=== PATIENT | female | born 1990 | race Caucasian/White ===

== ENCOUNTER 2024-12-03 17:27 | Inpatient (IN) | payer BC, SELFPAY ==
[2024-12-03] VITALS (24 sets, daily range): BP systolic 114–212; BP diastolic 67–113; PULSE 63–83; TEMP 36.4; O2SAT 96–100
[2024-12-03 18:12] LABS: Basophils Absolute Auto 0.1 10^3/uL (0.0-0.1); Basophils Percent Auto 0.4 % (0.2-2.0); Eosinophils Percent Auto 0.2 % (0.9-7.0); Hematocrit 43.5 % (36.0-48.0); Hemoglobin 14.7 g/dL (12.0-16.0); Immature Granulocytes Pct Auto 0.6 % (0.0-0.5); Lymphocytes Absolute Auto 1.9 10^3/uL (1.2-3.8); Lymphocytes Percent Auto 11.8 % (20.5-60.0); Mean Corpuscular HGB Conc 33.8 g/dL (29.9-35.2); Mean Corpuscular Hemoglobin 30.2 pg (26.7-34.0); Mean Corpuscular Volume 89.3 fL (81.0-99.0); Mean Platelet Volume 10.6 fL (9.5-13.5); Monocytes Absolute Auto 0.6 10^3/uL (0.3-0.8); Monocytes Percent Auto 4.1 % (1.7-12.0); Neutrophils Percent Auto 82.9 % (43.0-75.0); Platelet Count 287 10^3/uL (150-450); Red Blood Count 4.87 10^6/uL (4.20-5.40); Red Cell Distribution Width 13.8 % (11.0-15.0); White Blood Count 15.7 10^3/uL (4.0-11.0)
--- NOTE | 2024-12-03 18:53 | P.ON_ITS ---
Brief Operative Note Date of procedure: 12/03/24 Pre-op diagnosis general: iup at 38 3/7wks, breech presentation, non reassuring heart tones, Post-op diagnosis: same as pre-op Procedure: NAME OF PROCEDURE: [ section ] PROCEDURE: Patient was taken back to the Operating Room where she was given a spinal anesthesia with Duramorph without difficulty. She was prepped and draped in the normal sterile fashion. A Pfannenstiel skin incision was then made 2 cm above the symphysis pubis and carried down to underlying rectus fascia using a Bovie. The fascia was incised in the midline and extended laterally using Sahu scissors. Two Argenis clamps were placed on the superior aspect of the fascia and dissected off the underlying rectus muscles. The same was performed on the inferior aspect as well. The muscles were then in the midline. Peritoneum was identified and entered bluntly. The peritoneum was then extended superiorly and inferiorly with good visualization of the bladder. The bladder blade was inserted. A low transverse incision was made on the patient's uterus and extended laterally digitally. The infant was then delivered atraumatically after the bladder blade was removed in the breech position. The cord was clamped and cut. Cord blood was obtained. The was handed off to awaiting team. The patient's placenta was spontaneously delivered. The uterus was then exteriorized. The uterus was cleared of all clots and debris. The bladder blade was reinserted. The patient's uterine incision was closed using #0 Vicryl in a running lock fashion. Excellent hemostasis was assured. The uterus was then returned to the patient's abdomen. The patient's abdomen was copiously irrigated using warm saline. Peritoneal gutters were cleared of all clots and debris. Again excellent hemostasis was assured. The patient's peritoneum was closed using 3-0 Vicryl in a running fashion. The patient's fascia was closed using #0 Vicryl in a running fashion. The patient's skin was closed using 4-0 Vicryl subcuticularly. The patient tolerated the procedure well. Sponge, lap, and needle counts were correct x2. The patient was taken to the Recovery Room in stable condition. Anesthesia: spinal Surgeon: Akash Avila Speech And Language Assistant: VALDEZ ALBARADO Estimated blood loss (mL): 575 Pathology: other (placenta) Condition: stable Disposition: PACU Urinary Catheter Management Urinary Catheter Management Urethral: Cath placed during this visit: no
--- NOTE | 2024-12-03 19:04 | PM.OBPRCCS ---
Procedure Pre-op/Post-op diagnoses: Pre-Op/Post-Op Diagnoses Operation Date: 12/03/24 18:30 <No data on this case meets the specified criteria> Procedure: Procedures Operation Date: 12/03/24 18:30 Actual Procedure Side Surgeon p Not Applicable Akash Avila DO Elevator Service Technician: VALDEZ ALBARADO Estimated blood loss (mL): 575 Disposition: PACU Anesthesia type: Spinal
--- NOTE | 2024-12-03 19:33 | PM.OBHP ---
OB - H&P: HPI History of Present Illness Chief complaint: RULE OUT LABOR : 2 Para: 1 Gestational age based on last menstrual period: 38.5 History of Present Dating criteria: LMP confirmed by 1st trimester US care: good care Ultrasounds: normal 1st trimester US and normal mid trimester US Medical complications OB: none Labs Blood type: AB (+) positive Rubella: immune RPR/VDLR: nonreactive GBS status: positive HBsAG: negative Review of Systems ROS Status of ROS: 10 or more systems reviewed and unremarkable except as noted in history and below Exam Constitutional Vital Signs, click to edit/add: Last Vital Signs Pulse 83 12/03/24 18:05 BP 176/98 H 12/03/24 18:05 Documenting provider has reviewed patient's vital signs: yes Common normals: no apparent distress Exam limitations: altered mental status General appearance: cooperative, comfortable, well kempt and well developed Orientation/consciousness: Yes awake, Yes oriented to person, Yes oriented to place and Yes oriented to time HENMT Common normals: normocephalic Head and scalp: normal to inspection Eye Common normals: EOMs intact bilaterally General eye: normal appearance of both eyes Neck & C-Spine Common normals: full ROM General: normal visual inspection Lymph Lymphatic: no lymphadenopathy noted Chest Common normals: inspection of chest normal Respiratory Common normals: normal respiratory effort, no retractions, no use of accessory muscles and clear to auscultation bilaterally Effort & inspection: able to speak in complete sentences Auscultation: clear to auscultation bilaterally Cardio Common normals: regular rate and regular rhythm Rate: regular rate Rhythm: regular rhythm GI Common normals: Normal to inspection, nondistended, normoactive bowel sounds present Inspection: normal to inspection Auscultation: normoactive bowel sounds Palpation: soft Back & Pelvis Common normals: no CVA tenderness Extremity Common normals: normal to inspection, full ROM, normal capillary refill, no joint enlargement, no clubbing, cyanosis or edema, no calf tenderness and no pedal edema Neuro Common normals: oriented x3 Sensorium/orientation: awake, alert, oriented to person, oriented to place, oriented to time and orientation impaired Psych Common normals: mental status grossly normal, thought process normal, cooperative, affect normal, speech normal, activity/motor behavior normal, denies hallucinations, denies homicidal ideation and denies suicidal ideation Appearance: grossly normal Attitude: calm Speech: normal speech Results Labs Labs: Short CBC 12/03/24 Range/Units 17:55 WBC 15.7 H (4.0-11.0) 10^3/uL Hgb 14.7 (12.0-16.0) g/dL Hct 43.5 (36.0-48.0) % Plt Count 287 (150-450) 10^3/uL OB - A/P Assessment and Plan (1) Term : (2) Vaginal delivery: Urinary Catheter Management Urinary Catheter Management Urethral: Cath placed during this visit: no Urethral indwelling: Yes Reason for continuing: prolonged immobilization
--- NOTE | 2024-12-03 19:35 | PC.NURSE ---
1740: Patient arrives via wheelchair with and patient's mother. Cat Pang CNM at bedside. Patient breathing through ctx's. Abdomen palpates moderate strong with ctx. Patient denies localized pain in abdomen. Stands from wheelchair and 2 half-dollar size areas of blood noted on seat of wheelchair. Patient stated bloody show started on way to hospital. Sits on chux in bed and puts on gown-removes pants and lies back, has contraction and states here comes more fluid , CNM and RN visualize plate size area of bright red bleeding on chux and labia.174: Applying US and searching FHR. 174- CNM has US paged overhead. 1746: CN calls Dr Avila and A C/S called. 1748: Code purple paged overhead. IV started in right forearm per investment underwriter- unable to draw labs.1749: CNM applies spo2 monitor. LR hung and infusing wide open per gravity. CNM places 16 swedish young catheter and explains plan of care to patient and family. 1751: Milo Pina RN places 2nd IV site in left hand and labs drawn. 1757:Pharmacy present with preop meds and antibiotic. Dr. Avila at bedside and T's 130's- 175-CNM searching FHT's with US. T's 130's and B c/s called by physician at 1800.. Awaiting CBC results. Pre-op meds given per Milo Pina RN. Oracit given per Mirtha Medel RN po. 1801- Ancef 2 gms IVPB hung per investment underwriter. 1810: To OR per bed per CNM.
--- NOTE | 2024-12-03 19:52 | PM.EN ---
Event Note Event Note: Speech Language Pathologist Travel Note: I first assisted Dr Avila with a primary section for breech presentation and vaginal bleeding. I assisted as directed. I independently closed the Sq layer with 3-0 vicryl without difficulty. I then independently closed the skin incision with 4-0 vicryl without difficulty. Hemostasis noted at completion of closure. Patient tolerated procedure well.
[2024-12-03] MEDS: OXYTOCIN/0.9 % SODIUM CHLORIDE 20 UNITS/1,000 ML PLAST..BAG 125 UNIT IV (19:54)
[2024-12-03] MEDS: ACETAMINOPHEN 500 MG TABLET 1000 MG PO (21:35)
[2024-12-03] MEDS: KETOROLAC TROMETHAMINE 30 MG/ML VIAL IVP (21:35)
[2024-12-04] VITALS (11 sets, daily range): BP systolic 134–167; BP diastolic 74–91; PULSE 57–79; TEMP 36.4–36.9; O2SAT 97
[2024-12-04] MEDS: CEFAZOLIN SODIUM/DEXTROSE,ISO 2 GM/50 ML PIGGYBACK IV (01:38)
[2024-12-04] MEDS: KETOROLAC TROMETHAMINE 30 MG/ML VIAL IVP ×2 (03:24→09:10)
[2024-12-04 06:47] LABS: Basophils Percent Auto 0.2 % (0.2-2.0); Hemoglobin 11.9 g/dL (12.0-16.0); Immature Granulocytes Abs Auto 0.08 10^3/uL (0.00-0.03); Immature Granulocytes Pct Auto 0.5 % (0.0-0.5); Lymphocytes Absolute Auto 1.2 10^3/uL (1.2-3.8); Lymphocytes Percent Auto 7.8 % (20.5-60.0); Mean Corpuscular Hemoglobin 30.2 pg (26.7-34.0); Mean Corpuscular Volume 88.8 fL (81.0-99.0); Mean Platelet Volume 11.1 fL (9.5-13.5); Monocytes Absolute Auto 0.8 10^3/uL (0.3-0.8); Monocytes Percent Auto 5.2 % (1.7-12.0); Neutrophils Absolute Auto 13.2 10^3/uL (1.4-6.5); Neutrophils Percent Auto 86.3 % (43.0-75.0); Platelet Count 243 10^3/uL (150-450); Red Blood Count 3.94 10^6/uL (4.20-5.40); Red Cell Distribution Width 13.6 % (11.0-15.0); White Blood Count 15.3 10^3/uL (4.0-11.0)
[2024-12-04] MEDS: ENOXAPARIN SODIUM 40 MG/0.4 ML SYRINGE SUBQ (07:00)
[2024-12-04] MEDS: ACETAMINOPHEN 500 MG TABLET 1000 MG PO ×3 (07:00→23:55)
[2024-12-04] MEDS: DOCUSATE SODIUM 100 MG CAPSULE PO ×2 (08:37→21:57)
--- NOTE | 2024-12-04 08:51 | P.OBPN_ITS ---
OB - PN: Subj Subjective Patient comments: no complaints [place] status: doing well [place] feeding status: exclusively Exam Constitutional Vital Signs, click to edit/add: Last Vital Signs Temp 97.5 F L 12/03/24 19:18 Pulse 79 12/03/24 20:11 Resp 20 12/04/24 05:30 BP 146/84 H 12/04/24 01:56 Pulse Ox 96 12/03/24 20:07 O2 Del Method Room Air 12/04/24 05:30 Common normals: no apparent distress General appearance: cooperative, comfortable, well kempt and well developed Orientation/consciousness: Yes awake, Yes oriented to person, Yes oriented to place and Yes oriented to time HENMT Common normals: normocephalic Eye Common normals: EOMs intact bilaterally General eye: normal appearance of both eyes Visual acuity: acuity normal Neck & C-Spine Common normals: full ROM Lymph Lymphatic: no lymphadenopathy noted Chest Common normals: inspection of chest normal Respiratory Common normals: normal respiratory effort Effort & inspection: able to speak in complete sentences Auscultation: clear to auscultation bilaterally Cardio Common normals: regular rate and regular rhythm Rate: regular rate Rhythm: regular rhythm GI Common normals: Normal to inspection, nondistended, normoactive bowel sounds present Inspection: normal to inspection Auscultation: normoactive bowel sounds Palpation: soft Percussion: normal to percussion Common normals: no CVA tenderness Back & Pelvis Common normals: no CVA tenderness Extremity Common normals: normal to inspection General: normal exam except as noted Neuro Common normals: oriented x3 Sensorium/orientation: awake, alert, oriented to person, oriented to place and oriented to time Speech: speech normal Gait (neuro): normal gait Psych Psychiatry clinicians, please identify where your Mental Status Exam is documented: Mental Status Exam documented in the separate MSE Common normals: mental status grossly normal, thought process normal, cooperative, affect normal, speech normal, activity/motor behavior normal, denies hallucinations, denies homicidal ideation and denies suicidal ideation Appearance: grossly normal Attitude: calm Speech: normal speech Thought process: normal thought process Thought content: normal thought content Results Labs Labs: Short CBC 12/03/24 12/04/24 Range/Units 17:55 06:21 WBC 15.7 H 15.3 H (4.0-11.0) 10^3/uL Hgb 14.7 11.9 L (12.0-16.0) g/dL Hct 43.5 35.0 L (36.0-48.0) % Plt Count 287 243 (150-450) 10^3/uL Urinary Catheter Management Urinary Catheter Management Urethral: Cath placed during this visit: no Urethral indwelling: Yes Reason for continuing: prolonged immobilization OB - PN: A/P Assessment and Plan (1) Term : (2) Vaginal delivery: Plan - day: 1 Plan: routine postop care Time Spent with Patient Time: Total time spent is greater than 50% in coordination of care (as documented) at patient's floor/unit and/or counseling patient: Total time spent with greater than 50% in coordination of care (as documented) at patient's floor/unit and/or counseling patient: less than 15 minutes
[2024-12-04 13:59] LABS: Basophils Percent Auto 0.2 % (0.2-2.0); Eosinophils Percent Auto 0.1 % (0.9-7.0); Hematocrit 35.3 % (36.0-48.0); Hemoglobin 12.2 g/dL (12.0-16.0); Immature Granulocytes Abs Auto 0.06 10^3/uL (0.00-0.03); Immature Granulocytes Pct Auto 0.4 % (0.0-0.5); Lymphocytes Absolute Auto 2.4 10^3/uL (1.2-3.8); Lymphocytes Percent Auto 14.4 % (20.5-60.0); Mean Corpuscular HGB Conc 34.6 g/dL (29.9-35.2); Mean Corpuscular Volume 89.6 fL (81.0-99.0); Mean Platelet Volume 10.9 fL (9.5-13.5); Monocytes Absolute Auto 1.5 10^3/uL (0.3-0.8); Monocytes Percent Auto 8.9 % (1.7-12.0); Neutrophils Absolute Auto 12.6 10^3/uL (1.4-6.5); Platelet Count 264 10^3/uL (150-450); Red Blood Count 3.94 10^6/uL (4.20-5.40); White Blood Count 16.5 10^3/uL (4.0-11.0)
[2024-12-04 14:17] LABS: Alanine Aminotransferase 22 U/L (14-59); Albumin Globulin Ratio 0.6; Albumin Level 2.4 g/dL (3.4-5.0); Alkaline Phosphatase 88 U/L (46-116); Aspartate Amino Transferase 19 U/L (15-37); BUN Creatinine Ratio 23.3; Bilirubin Total 0.3 mg/dL (0.2-1.0); Calcium 9.4 mg/dL (8.5-10.1); Carbon Dioxide 24.2 mmol/L (21.0-32.0); Chloride 105 mmol/L (98-107); Estimated GFR (African America >60 (>=60 mL/min/1.73m^2); Estimated GFR (Non-African Ame >60 (>=60 mL/min/1.73m^2); Globulin 3.8 g/dL; Glucose 84 mg/dL (74-106); Lactate Dehydrogenase 258 U/L (81-234); Potassium 4.2 mmol/L (3.5-5.1); Sodium 140 mmol/L (136-145); Total Protein 6.2 g/dL (6.4-8.2)
[2024-12-04 14:20] LABS: Prothrombin Time 9.7 sec (9.0-11.6)
[2024-12-04 14:22] LABS: INR <0.93
[2024-12-04 14:23] LABS: Fibrinogen 432 mg/dL (200-400)
[2024-12-04 14:36] LABS: Creatinine Urine Random 17.81 mg/dL (20.00-300.00); Protein Creatinine Ratio Urine 0.34; Total Protein Urine Random <6.0 mg/dL (<=11.9)
[2024-12-04] MEDS: IBUPROFEN 400 MG TABLET 800 MG PO ×2 (15:52→21:57)
[2024-12-05] VITALS: BP 134/74; TEMP 36.4
[2024-12-05] MEDS: IBUPROFEN 400 MG TABLET 800 MG PO ×3 (04:16→17:22)
[2024-12-05 04:20] VITALS: BP 155/84; PULSE 58
[2024-12-05 08:09] VITALS: BP 143/82; PULSE 68
[2024-12-05] MEDS: ENOXAPARIN SODIUM 40 MG/0.4 ML SYRINGE SUBQ (08:13)
[2024-12-05] MEDS: ACETAMINOPHEN 500 MG TABLET 1000 MG PO ×2 (08:14→17:23)
[2024-12-05] MEDS: DOCUSATE SODIUM 100 MG CAPSULE PO (08:14)
[2024-12-05 08:20] VITALS: BP 143/82; PULSE 68; TEMP 36.9
--- NOTE | 2024-12-05 10:28 | PM.OBDS ---
DS: Providers Provider Date of admission: 12/03/24 17:27 Primary care physician: Non-Staff Physician, Admitting clinician: VALDEZ ALBARADO Attending physician on discharge: Lala Medellin Anticipated date of discharge: 12/05/24 DS: Diagnosis Discharge Diagnosis (1) delivery indicated due to breech presentation: Assessment and plan: S/P URGENT CS FOR NONREASSURING HEART TRACING, VAGINAL BLEEDING AND BREECH PRESENTATION PRIOR TO 39 WEEKS. UNCOMPLICATED POST OP COURSE. INCISION CARE INSTRUCTIONS GIVEN WITH STATED UNDERSTANDING. (2) Hypertension: Assessment and plan: THIS PATIENT HAS A NORMAL BMI. SHE DOES NOT SMOKE. SHE HAS NO MEDICAL HISTORY. THAT SAID, POST SHE DID HAVE ELEVATED BLOOD PRESSURES. HER WORK UP FOR PREECLCAMPSIA WAS NEGATIVE. THE BLOOD PRESSURES WERE NOT IN THE SEVERE RANGE. SHE IS WHOLISTIC WITH RESPECT TO HER LIFESTYLE AND STRONGLY RESISTED ANY MEDICATIONS AFTER URGENT SECTION. SHE DEMONSTRATED NO SYMPTOMS WITH ELEVATED BLOOD PRESSURES. I BELIEVE THIS PATIENT WILL RESOLVE HER HYPERTENSION ON HER OWN AND WILL NOT PRESCRIBE ANTIHYPERTENSIVES WHICH IS HER EXPRESSED WISH. THAT SAID, SHE WILL BE CLOSELY MONITORED POST AND IF THERE IS NOT COMPLETE RESOLUTION AND OR PRESENCE OF SYMPTOMS FOR ELEVATED BLOOD PRESSURE SHE WILL BE STARTED ON AN ANTIHYPERTENSIVE. SHE LIVES IN [facility] [place] C[place]SE TO HER MIDWIVES OFFICE AND WILL FOLLOW UP SUNDAY FOR INCISION CHECK AND BLOOD PRESSURE CHECK Qualifiers: Hypertension type: unspecified Qualified Code(s): I10 - Essential (primary) hypertension Plan SEE ABOVE OB - DS: Summary Hospital Course Hospital Course: UNCOMPLICATED Time spent discussing smoking cessation with patient: more than 10 minutes Peripartum Data - Procedures: Procedures Operation Date: 12/03/24 18:30 Actual Procedure Side Surgeon p Not Applicable Akash Avila DO Peripartum Data - Vaginal Delivery Procedures: Procedures Operation Date: 12/03/24 18:30 Actual Procedure Side Surgeon p Not Applicable Akash Avila DO Complications complications: none Infant Delivery method: emergency section Gender: male Discharge plan: home Status at Discharge Cognitive/behavioral status at discharge: WNL Functional status at discharge: independent ambulation Overall status at discharge: patient is progressing back to baseline Time Spent with Patient Time attestation: Total time spent providing and/or coordinating discharge services: Time spent: less than 30 minutes Exam Narrative Exam Narrative: ASKING TO BE DISCHARGED, VOICING NO COMPLAINTS Constitutional Vital Signs, click to edit/add: Last Vital Signs Temp 98.5 F 12/05/24 08:20 Pulse 68 12/05/24 08:20 Resp 18 12/05/24 00:00 BP 143/82 H 12/05/24 08:20 Pulse Ox 97 12/04/24 12:15 O2 Del Method Room Air 12/05/24 00:00 Documenting provider has reviewed patient's vital signs: yes Common normals: no apparent distress, average body habitus, oriented x3, no limitations, healthy appearing, alert and well nourished General appearance: cooperative, comfortable, well kempt and well developed HENMT Common normals: normocephalic and head/scalp atraumatic Eye Common normals: PERRL Pupil: accommodation reflex normal Neck & C-Spine Common normals: full ROM and supple Chest Common normals: inspection of chest normal Respiratory Common normals: normal respiratory effort Auscultation: clear to auscultation bilaterally Cardio Common normals: regular rate and regular rhythm GI Common normals: Normal to inspection, nondistended, normoactive bowel sounds present, soft to palpation and non-tender Common normals: no CVA tenderness Back & Pelvis Common normals: no thoracic nor lumbar tenderness Extremity Common normals: normal to inspection, full ROM and no calf tenderness Neuro Common normals: CN's II-XII intact bilaterally, moves all extremities, no focal motor deficits and no sensory deficits noted Motor exam: strength 5/5 throughout Psych Common normals: mental status grossly normal, thought process normal, cooperative, affect normal, speech normal and activity/motor behavior normal DS: Data Data Completed and Pending Labs on day of discharge: Labs from last 24 hours 12/04/24 12/04/24 14:20 13:51 WBC 16.5 H RBC 3.94 L Hgb 12.2 Hct 35.3 L MCV 89.6 MCH 31.0 MCHC 34.6 RDW 14.0 Plt Count 264 MPV 10.9 Neut % (Auto) 76.0 H Lymph % (Auto) 14.4 L Gilliam % (Auto) 8.9 Eos % (Auto) 0.1 L Baso % (Auto) 0.2 Neut # (Auto) 12.6 H Lymph # (Auto) 2.4 Gilliam # (Auto) 1.5 H Eos # (Auto) 0.0 Baso # (Auto) 0.0 Abs Immat Gran (auto) 0.06 H Imm/Tot Granulo (auto) 0.4 PT 9.7 INR <0.93 APTT 24.0 Fibrinogen 432 H Sodium 140 Potassium 4.2 Chloride 105 Carbon Dioxide 24.2 Anion Gap 15.0 BUN 17.0 Creatinine 0.73 Est GFR ( Amer) >60 Est GFR (Non-Af Amer) >60 BUN/Creatinine Ratio 23.3 Glucose 84 Calcium 9.4 Total Bilirubin 0.3 AST 19 ALT 22 Alkaline Phosphatase 88 Lactate Dehydrogenase 258 H Total Protein 6.2 L Albumin 2.4 L Globulin 3.8 Albumin/Globulin Ratio 0.6 Ur Random Creatinine 17.81 L U Random Total Protein <6.0 Protein/Creatinin Ratio 0.34 Discharge Plan Discharge Disposition: Home, Self-Care Condition: Good Assessment: BLOOD PRESSURE TRENDING BACK TO NORMAL RANGE. NO SYMPTOMS OF HEADACHE OF VISUAL CHANGES OR BLURRING VISION. CLINICAL EXAM NORMAL. BREAST FEEDING GOING WELL. Plan of Treatment: DISCHARGE HOME, CLOSE MONITORING OF BLOOD PRESSURE TO ENSURE RETURNS TO NORMAL. INSTRUCTIONS GIVEN WITH STATED UNDERSTANDING. GENERAL RSV, COVID AND PNEUMONIA PRECAUTIONS Activity: increase activity as tolerated Activity Detail: NO SEX SIX WEEKS, WALKING ONLY EXERCISE SIX WEEKS, NO BATHTUB SIX WEEKS, MAY SHOWER, NO DRIVING 4 WEEKS, MAY CLIMB STAIRS Diet: regular diet Print Language: Malaysian Patient Instructions: Hypertension (DC), (DC) Activity Restrictions/Additional Instructions: STATED ABOVE Forms: Portal Instructions Follow Up Appointments: FOLLOW UP SUNDAY WITH FRANCOISE ALBARADO FOR INCISION CHECK AND BLOOD PRESSURE CHECK Discharge location: HOME
[2024-12-05 17:01] VITALS: BP 152/78; PULSE 78
[2024-12-05 17:05] VITALS: BP 152/78; PULSE 78; TEMP 37.3
== END 2024-12-05 20:25 | disposition home or self-care (01) | DRG 788 ==
PROVIDERS: Obstetrics & Gynecology; Admitting Provider Midwife; Visit Provider Midwife
PROC: 10D00Z1 Extraction of Products of Conception, Low, Open Approach (ICD-10-PCS; CPT 59514; principal; 2024-12-03 18:30)
DX: O32.1XX0 Maternal care for breech presentation, not applicable or unspecified (principal); O99.824 Streptococcus B carrier state complicating childbirth; O67.8 Other intrapartum hemorrhage; O76 Abnormality in fetal heart rate and rhythm complicating labor and delivery; O16.5 Unspecified maternal hypertension, complicating the puerperium; Z3A.38 38 weeks gestation of pregnancy; Z37.0 Single live birth
CPT/HCPCS: 36415; 64488; 80053; 80307; 82570; 83615; 84156; 85025; 85384; 85610; 85730; 86850; 86900; 86901; 88307; 94667; 94668; J0665; J0690; J1100; J1650; J1885; J2250; J2274; J2371; J2405; J2590; J3010

== ENCOUNTER 2024-12-10 14:45 | Observation (INO) | payer BC, SELFPAY ==
[2024-12-10] VITALS (29 sets, daily range): BP systolic 92–190; BP diastolic 56–121
[2024-12-10] MEDS: LABETALOL HCL 20 MG/4 ML SYRINGE IVP (15:31)
[2024-12-10] MEDS: MAGNESIUM SULFATE IN WATER 40 GM/1,000 ML IV.SOLN IV ×2 (15:38→16:07)
[2024-12-10] MEDS: MAGNESIUM-BOLUS FROM THE BAG- 40 GM/1,000 ML IV.SOLN IV (15:39)
[2024-12-10 16:24] LABS: Basophils Absolute Auto 0.1 10^3/uL (0.0-0.1); Basophils Percent Auto 0.6 % (0.2-2.0); Eosinophils Absolute Auto 0.3 10^3/uL (0.0-0.7); Eosinophils Percent Auto 2.2 % (0.9-7.0); Hematocrit 37.7 % (36.0-48.0); Hemoglobin 12.7 g/dL (12.0-16.0); Immature Granulocytes Abs Auto 0.08 10^3/uL (0.00-0.03); Immature Granulocytes Pct Auto 0.7 % (0.0-0.5); Lymphocytes Absolute Auto 2.7 10^3/uL (1.2-3.8); Lymphocytes Percent Auto 23.6 % (20.5-60.0); Mean Corpuscular HGB Conc 33.7 g/dL (29.9-35.2); Mean Corpuscular Hemoglobin 30.3 pg (26.7-34.0); Mean Platelet Volume 10.5 fL (9.5-13.5); Monocytes Absolute Auto 0.8 10^3/uL (0.3-0.8); Monocytes Percent Auto 6.9 % (1.7-12.0); Neutrophils Absolute Auto 7.4 10^3/uL (1.4-6.5); Platelet Count 333 10^3/uL (150-450); Red Blood Count 4.19 10^6/uL (4.20-5.40); Red Cell Distribution Width 13.8 % (11.0-15.0); White Blood Count 11.3 10^3/uL (4.0-11.0)
[2024-12-10] MEDS: LABETALOL HCL 20 MG/4 ML SYRINGE 40 MG IVP (16:39)
[2024-12-10 16:43] LABS: Alanine Aminotransferase 81 U/L (14-59); Albumin Globulin Ratio 0.7; Albumin Level 2.9 g/dL (3.4-5.0); Alkaline Phosphatase 101 U/L (46-116); Anion Gap 16.5; Aspartate Amino Transferase 51 U/L (15-37); BUN Creatinine Ratio 33.3; Bilirubin Total 0.4 mg/dL (0.2-1.0); Calcium 9.4 mg/dL (8.5-10.1); Carbon Dioxide 22.6 mmol/L (21.0-32.0); Chloride 104 mmol/L (98-107); Estimated GFR (African America >60 (>=60 mL/min/1.73m^2); Estimated GFR (Non-African Ame >60 (>=60 mL/min/1.73m^2); Globulin 3.9 g/dL; Glucose 79 mg/dL (74-106); Potassium 4.1 mmol/L (3.5-5.1); Sodium 139 mmol/L (136-145); Total Protein 6.8 g/dL (6.4-8.2)
[2024-12-10 17:05] LABS: Fibrinogen 360 mg/dL (200-400)
[2024-12-10] MEDS: LABETALOL HCL 100 MG TABLET 300 MG PO (18:02)
--- NOTE | 2024-12-10 20:09 | PC.NURSE ---
Magnesium sulfate 2 gms/hr per IV infusion. NS infusing as mainline at 50ml/hr per pump. Verified with Jc Hawthorne RN
[2024-12-11] VITALS (16 sets, daily range): BP systolic 97–116; BP diastolic 59–76; PULSE 62–65; TEMP 36.4–37.1; O2SAT 96
[2024-12-11] MEDS: LABETALOL HCL 100 MG TABLET 200 MG PO ×3 (02:22→17:40)
--- NOTE | 2024-12-11 09:09 | PM.OBPN ---
OB - PN: Subj Subjective Patient comments: no complaints [place] status: doing well [place] feeding status: exclusively Exam Constitutional Vital Signs, click to edit/add: Last Vital Signs Temp 97.6 F 12/11/24 05:39 Pulse 65 12/11/24 05:39 Resp 16 12/11/24 05:39 BP 113/74 12/11/24 08:00 Pulse Ox 96 12/11/24 05:39 O2 Del Method Room Air 12/11/24 05:39 Documenting provider has reviewed patient's vital signs: yes Common normals: no apparent distress General appearance: cooperative, comfortable, well kempt and well developed Orientation/consciousness: Yes awake, Yes oriented to person, Yes oriented to place and Yes oriented to time HENMT Common normals: normocephalic Eye Common normals: EOMs intact bilaterally General eye: normal appearance of both eyes Neck & C-Spine Common normals: no lymphadenopathy General: normal visual inspection Lymph Lymphatic: no lymphadenopathy noted Respiratory Common normals: normal respiratory effort, no retractions, no use of accessory muscles and clear to auscultation bilaterally Effort & inspection: able to speak in complete sentences Cardio Common normals: regular rate and regular rhythm Rate: regular rate Rhythm: regular rhythm GI Common normals: Normal to inspection, nondistended, normoactive bowel sounds present Inspection: normal to inspection Back & Pelvis Common normals: no CVA tenderness Extremity Common normals: normal to inspection Neuro Common normals: oriented x3 Sensorium/orientation: awake, alert, oriented to person, oriented to place and oriented to time Psych Common normals: mental status grossly normal, thought process normal, cooperative, affect normal, speech normal, activity/motor behavior normal, denies hallucinations, denies homicidal ideation and denies suicidal ideation Attitude: calm Thought process: normal thought process Results Labs Labs: Short CBC 12/10/24 Range/Units 15:50 WBC 11.3 H (4.0-11.0) 10^3/uL Hgb 12.7 (12.0-16.0) g/dL Hct 37.7 (36.0-48.0) % Plt Count 333 (150-450) 10^3/uL BMP 12/10/24 15:50 Sodium 139 Potassium 4.1 Chloride 104 Carbon Dioxide 22.6 BUN 19.0 H Creatinine 0.57 Glucose 79 Calcium 9.4 Liver Function 12/10/24 Range/Units 15:50 Total Bilirubin 0.4 (0.2-1.0) mg/dL AST 51 H (15-37) U/L ALT 81 H (14-59) U/L Alkaline Phosphatase 101 (46-116) U/L Albumin 2.9 L (3.4-5.0) g/dL Urinary Catheter Management Urinary Catheter Management Urethral: Cath placed during this visit: no Urethral indwelling: Yes Reason for continuing: prolonged immobilization OB - PN: A/P Plan - Comment: readmit for post preeclampsia. elevated blood pressure in my office. readmit for 24 OBS and magnesium sulfate IV and labetalol administration. Time Spent with Patient Time: Total time spent is greater than 50% in coordination of care (as documented) at patient's floor/unit and/or counseling patient: Total time spent with greater than 50% in coordination of care (as documented) at patient's floor/unit and/or counseling patient: less than 15 minutes
[2024-12-11] MEDS: MAGNESIUM SULFATE IN WATER 40 GM/1,000 ML IV.SOLN IV (09:43)
[2024-12-11] MEDS: 0.9 % SODIUM CHLORIDE 1,000 ML 50 ML IV (10:00)
[2024-12-12 01:44] VITALS: BP 136/62; PULSE 60; TEMP 36.7
[2024-12-12] MEDS: LABETALOL HCL 100 MG TABLET 200 MG PO ×2 (01:47→09:21)
--- NOTE | 2024-12-12 08:03 | P.OBPN_ITS ---
OB - PN: Subj Subjective Patient comments: no complaints [place] status: doing well Exam Constitutional Vital Signs, click to edit/add: Last Vital Signs Temp 98.0 F 12/12/24 01:44 Pulse 60 12/12/24 01:44 Resp 16 12/12/24 01:44 BP 136/62 12/12/24 01:44 Pulse Ox 96 12/11/24 12:15 O2 Del Method Room Air 12/12/24 01:45 Documenting provider has reviewed patient's vital signs: yes Common normals: no apparent distress Respiratory Common normals: normal respiratory effort and clear to auscultation bilaterally Cardio Common normals: regular rate and regular rhythm GI Common normals: Normal to inspection, nondistended, normoactive bowel sounds present Extremity Common normals: no clubbing, cyanosis or edema Urinary Catheter Management Urinary Catheter Management Urethral: Cath placed during this visit: no Urethral indwelling: Yes OB - PN: A/P Assessment and Plan (1) Severe pre-eclampsia, : Assessment and Plan: cont labetalol, fu 1wk for bp check, labs reviewed, dc home, precautions given Plan - Vaginal Delivery day: 9 Plan: discharge home and other (fu 1wk) Time Spent with Patient Time: Total time spent is greater than 50% in coordination of care (as documented) at patient's floor/unit and/or counseling patient: Total time spent with greater than 50% in coordination of care (as documented) at patient's floor/unit and/or counseling patient: less than 15 minutes
[2024-12-12 09:00] VITALS: BP 150/82; PULSE 60; TEMP 36.6
== END 2024-12-12 10:15 | disposition home or self-care (01) ==
PROVIDERS: Admitting Provider Midwife; Visit Provider Midwife
DX: O14.15 Severe pre-eclampsia, complicating the puerperium (principal)
CPT/HCPCS: 36415; 80053; 84560; 85025; 85384; 96365; 96366; 96375; 96376; G0378; G0379; J1920; J3475

== ENCOUNTER 2024-12-15 08:19 | Outpatient (OUT) | payer BC, SELFPAY ==
--- OUTSIDE RECORDS SUMMARY | 2024-12-15 08:37 | XMS_ITS | CCD ---
Author Organization [facility] Care Team Providers Care Drafter (Cad) Electronic Name Role Phone Connie Hernandez MD Primary Care Provider FLORO, KELLY L Attending Unavailable FLORO, KELLY L Attending Unavailable FLORO, KELLY L Attending Unavailable FLORO, KELLY L Referring Unavailable FLORO, KELLY L Attending Unavailable FLORO, KELLY L Attending Unavailable FLORO, KELLY L Referring Unavailable FLORO, KELLY L Attending Unavailable FLORO, KELLY L Attending Unavailable FLORO, KELLY L Referring Unavailable FLORO, KELLY L Attending Unavailable FLORO, KELLY L Attending Unavailable FLORO, KELLY L Attending Unavailable FLORO, KELLY L Attending Unavailable FLORO, KELLY L Attending Unavailable FLORO, KELLY L Attending Unavailable NIKA AVILA Attending Unavailable Medications Current Medications Medication Drug Class(es) Dates Sig (Normalized) Sig (Original) acetaminophen 500 mg oral tablet (3 sources) take 1 tablet by mouth every eight hours as needed for pain acetaminophen (Tylenol) 500 MG tablet Take 500 mg by mouth every 8 (eight) hours if needed for mild pain Active ibuprofen 600 mg oral tablet (3 sources) Nonsteroidal Anti-inflammatory Drug take 1 tablet by mouth every six hours as needed for pain ibuprofen 600 MG tablet 600 mg every 6 (six) hours if needed for mild pain Active Problems Problem Classification Problem Date Documented Da te Episodic/Chronic Female infertility (4 sources) Anovulation; Translations: [Female infertility associated with anovulation] 01-01-2024 Chronic Malposition; malpresentation (12 sources) Breech presentation; Translations: [Maternal care for breech presentation, not applicable or unspecified] 10-08-2024 Episodic Other circulatory disease (2 sources) Elevated blood pressure; Translations: [Elevated blood-pressure reading, without diagnosis of hypertension] 12-10-2024 Episodic Other complications of (4 sources) Finding related to ; Translations: [ related conditions, unspecified, third trimester] 09-10-2024 Episodic Other nervous system disorders (2 sources) Hyperreflexia; Translations: [Abnormal reflex] 12-10-2024 Episodic Other and delivery including normal (20 sources) Normal ; Translations: [Encounter for supervision of other normal , second trimester] 09-10-2024 Episodic Other screening for suspected conditions (not mental disorders or infectious disease) (6 sources) Cancer cervix screening status; Translations: [Encounter for screening for malignant neoplasm of cervix] 01-01-2024 Episodic Residual codes; unclassified (2 sources) Gestation period, 38 weeks; Translations: [38 weeks gestation of ] 12-03-2024 Episodic Results Test Name Value Interpretation Reference Range Facil ity ALL CBC WITH AUTO DIFFon BASOPHILS ABSOLUTE AUTO 0.1 [facility] Basophils/100 WBC (Bld) 0.6 % 0.2 - 2.0 % [facility] Eosinophils/100 WBC (Bld) 2.2 % 0.9 - 7.0 % [facility] Erythrocyte distribution width (RBC) [Ratio] 13.8 % 11.0 - 15.0 % [facility] Hematocrit (Bld) [Volume fraction] 37.7 % 36.0 - 48.0 % [facility] [Mass/Vol] 12.7 g/dL 12.0 - 16.0 g/dL [facility] IMMATURE GRANULOCYTES ABS AUTO 0.08 High [facility] Immature granulocytes/100 WBC (Bld) 0.7 % High 0.0 - 0.5 % [facility] Interpretation and review of laboratory results Abnormal [facility] LYMPHOCYTES ABSOLUTE AUTO 2.7 [facility] Lymphocytes/100 WBC (Bld) 23.6 % 20.5 - 60.0 % [facility] MCH (RBC) [Entitic mass] 30.3 pg 26.7 - 34.0 pg [facility] MCHC (RBC) [Mass/Vol] 33.7 g/dL 29.9 - 35.2 g/dL [facility] MCV (RBC) [Entitic vol] 90 fL 81.0 - 99.0 fL [facility] MONOCYTES ABSOLUTE AUTO 0.8 [facility] Monocytes/100 WBC (Bld) 6.9 % 1.7 - 12.0 % [facility] NEUTROPHILS ABSOLUTE AUTO 7.4 High [facility] Neutrophils/100 WBC (Bld) 66 % 43.0 - 75.0 % [facility] Platelet mean volume (Bld) [Entitic vol] 10.5 fL 9.5 - 13.[address] [facility] EO # 0.3 [facility] PLT 333 [facility] RBC 4.19 Low [facility] WBC 11.3 High [facility] ALL CBC WITH AUTO DIFFon BASOPHILS ABSOLUTE AUTO 0 [facility] Basophils/100 WBC (Bld) 0.2 % 0.2 - 2.0 % [facility] Eosinophils/100 WBC (Bld) 0 % Low 0.9 - 7.0 % [facility] Erythrocyte distribution width (RBC) [Ratio] 13.6 % 11.0 - 15.0 % [facility] Hematocrit (Bld) [Volume fraction] 35 % Low 36.0 - 48.0 % [facility] Hemoglobin (Bld) [Mass/Vol] 11.9 g/dL Low 12.0 - 16.0 g/dL [facility] IMMATURE GRANULOCYTES ABS AUTO 0.08 High [facility] Immature granulocytes/100 WBC (Bld) 0.5 % 0.0 - 0.5 % [facility] Interpretation and review of laboratory results Abnormal [facility] LYMPHOCYTES ABSOLUTE AUTO 1.2 [facility] Lymphocytes/100 WBC (Bld) 7.8 % Low 20.5 - 60.0 % [facility] MCH (RBC) [Entitic mass] 30.2 pg 26.7 - 34.0 pg [facility] MCHC (RBC) [Mass/Vol] 34 g/dL 29.9 - 35.2 g/dL [facility] MCV (RBC) [Entitic vol] 88.8 fL 81.0 - 99.0 fL [facility] MONOCYTES ABSOLUTE AUTO 0.8 [facility] Monocytes/100 WBC (Bld) 5.2 % 1.7 - 12.0 % [facility] NEUTROPHILS ABSOLUTE AUTO 13.2 High [facility] Neutrophils/100 WBC (Bld) 86.3 % High 43.0 - 75.0 % [facility] Platelet mean volume (Bld) [Entitic vol] 11.1 fL 9.5 - 13.5 fL [facility] EO # 0 [facility] PLT 243 [facility] RBC 3.94 Low [facility] WBC 15.3 High [facility] ALL CBC WITH AUTO DIFFon BASOPHILS ABSOLUTE AUTO 0.1 [facility] Basophils/100 WBC (Bld) 0.4 % 0.2 - 2.0 % [facility] Eosinophils/100 WBC (Bld) 0.2 % Low 0.9 - 7.0 % [facility] Erythrocyte distribution width (RBC) [Ratio] 13.8 % 11.0 - 15.0 % [facility] Hematocrit (Bld) [Volume fraction] 43.5 % 36.0 - 48.0 % [facility] Hemoglobin (Bld) [Mass/Vol] 14.7 g/dL 12.0 - 16.0 g/dL [facility] IMMATURE GRANULOCYTES ABS AUTO 0.1 High [facility] Immature granulocytes/100 WBC (Bld) 0.6 % High 0.0 - 0.5 % [facility] Interpretation and review of laboratory results Abnormal [facility] LYMPHOCYTES ABSOLUTE AUTO 1.9 [facility] Lymphocytes/100 WBC (Bld) 11.8 % Low 20.5 - 60.0 % [facility] MCH (RBC) [Entitic mass] 30.2 pg 26.7 - 34.0 pg [facility] MCHC (RBC) [Mass/Vol] 33.8 g/dL 29.9 - 35.2 g/dL [facility] MCV (RBC) [Entitic vol] 89.3 fL 81.0 - 99.0 fL [facility] MONOCYTES ABSOLUTE AUTO 0.6 [facility] Monocytes/100 WBC (Bld) 4.1 % 1.7 - 12.0 % [facility] NEUTROPHILS ABSOLUTE AUTO 13 High [facility] Neutrophils/100 WBC (Bld) 82.9 % High 43.0 - 75.0 % [facility] Platelet mean volume (Bld) [Entitic vol] 10.6 fL 9.5 - 13.5 fL [facility] EO # 0 [facility] PLT 287 [facility] RBC 4.87 [facility] WBC 15.7 High [facility] Urinalysis macro (dipstick) panel (U)on 12-03-2024 Bilirubin, UA Negative Negative - 4(70) +++ mg/dL [facility] Blood, UA Negative Negative - 50 Mendez/mcL [facility] Clarity, UA Clear [facility] re Color, UA Yellow [facility] Glucose, UA Negative Negative - 1999(110) ++++ mg/dL [facility] Interpretation and review of laboratory results Abnormal [facility] Ketones, UA Negative Negative - 160(16) ++++ mg/dL [facility] Leukocytes, UA Trace Negative - 500+++ Josselin/mcL [facility] Nitrite, UA Negative Negative - Positive [facility] pH, UA 7 5 - 9 [facility] e Protein, UA Negative Negative - 1999(20) ++++ mg/dL [facility] Spec Grav, UA 1.015 1 - 1.03 [facility] Urobilinogen, UA 0.2 0.2 - 12 mg/dL [facility] US OB FOLLOW UP TRANSABDOMIN AL APPROACHon 10-08-2024 US OB FOLLOW UP TRANSABDOMINAL APPROACH EXAM: OB Ultrasound: REASON FOR EXAM: Follow up growth. TECHNIQUE: Grayscale and color Doppler imaging is performed. Measurements: heart rate: 141 bpm DAVID: 15.8 cm (8.9 - 23.6) BPD: 7.6 cm HC: 27.8 cm AC: 25.9 cm FL: 5.9 cm GA for sonogram: 30.1 wk (27.7 - 32.6) Cervix length: 3.7 cm RENA: 12/13/2024 Weight Estimate: Weight: 1558 gm / 3 lbs, 6 oz (1330 - 1785 gm) Hadlock Normal: 1666 gm (1383 - 1949 gm) Hadlock Wt%: 31% for 30.6 wks Clinical Summary: A single intrauterine is noted in breech presentation. heart is observed with a heart rate of 141 bpm. size is normal. body and limb movements are observed. Placenta is located fundally. Placenta is Grade I/III Amniotic fluid volume is normal. Limites study. Full anatomical survey not performed. Dictated and transcribed 10/08/2024/tm This report has been electronically signed and approved by the interpreting radiologist. Normal Not Available US OB 14+ WEEKS ANATOMY SCAN on 07-24-2024 US OB 14+ WEEKS ANATOMY SCAN EXAM: OB Ultrasound: REASON FOR EXAM: Anatomy scan. TECHNIQUE: Grayscale imaging with color-flow Doppler and spectral analysis performed. Measurements: heart rate: 147 bpm DAVID: 12.0 cm (9.2 - 21.1) BPD: 4.8 cm HC: 16.8 cm AC: 14.2 cm FL: 3.1 cm GA for sonogram: 19.6 weeks (18.2 - 21.0) RENA: 12/13/2024 Cervix length: 4.4 cm Weight Estimate: Weight: 302 gm/0 lbs, 10 oz (258 - 346 gm) Hadlock Normal: 314 gm (261 - 367 gm) Hadlock Wt%: 40% for 19.7 wks Clinical Summary: A single intrauterine is noted in cephalic presentation. Four-chamber heart is observed with a heart rate of 147 BPM. size is normal. growth: Consistent with normal growth. motion and organs seen: Normal intracranial anatomy is seen. body and limb movements are observed. spine, limbs, bladder, kidneys and stomach are observed and within normal limits. Umbilical cord insertion and three-vessel cord are identified and within normal limits. diaphragm, genitalia, four limbs are visualized and normal in appearance. Placenta is located anterior, fundal/right. Placenta is grade 0/III. There is no evidence of placenta previa. Amniotic fluid volume is normal. IMPRESSION: LMP is accurate. Normal study. Dictated and transcribed 07/25/2024/ This report has been electronically signed and approved by the interpreting radiologist. Electronically Signed John Burks M.D. 2024-07-25 18:58:19 Normal Not Available US OB < 14 WEEKS EARLYon US OB < 14 WEEKS EARLY FINDINGS: A single intrauterine gestational sac is present. No subchorionic hemorrhage. A single pole is present. Normal heart rate at 168 beats per minute. Yolk sac also is seen. Current sonographic age is 8 weeks and 5 days based on the crown-rump length measurement of 2.1cm. Based on this age, current estimated date of delivery is December 12, 2024. No pelvic fluid or adnexal mass present. Cervical 4.8 cm closed. Right ovarian 1.6 x 2.0 cm corpus luteum cyst. IMPRESSION: Findings consistent with a live intrauterine gestation, current sonographic age of 8 weeks and4 days resulting in an estimated date of delivery of December 12, 2024. TRANSCRIBED BY: ELECTRONICALLY SIGNED BY: Garfield Swartz MD Normal Not Available Vital Signs Date Time Vital Sign Value Performing Clinician Faci lity 12-10-2024 13:36-0500 Body mass index (BMI) [Ratio] 21.73 kg/m2 Kelly Floro CNM Work Phone: [facility] 12-10-2024 13:36-0500 Body weight 52.16 kg Kelly Floro CNM Work Phone: [facility] 12-03-2024 11:41-0500 Body mass index (BMI) [Ratio] 24.26 kg/m2 Nika Margarita DO Work Phone: [facility] 12-03-2024 11:41-0500 Body weight 58.24 kg Nika Margarita DO Work Phone: [facility] 12-03-2024 11:41-0500 Diastolic blood pressure 102 mm[Hg] Nika Margarita DO Work Phone: [facility] 12-03-2024 11:41-0500 Systolic blood pressure 168 mm[Hg] Nika Margarita DO Work Phone: [facility] 11-26-2024 08:37-0500 Body mass index (BMI) [Ratio] 24.37 kg/m2 Kelly Floro CNM Work Phone: [facility] 11-26-2024 08:37-0500 Body weight 58.51 kg Kelly Floro CNM Work Phone: [facility] 11-26-2024 08:37-0500 Diastolic blood pressure 78 mm[Hg] Kelly Floro CNM Work Phone: [facility] 11-26-2024 08:37-0500 Systolic blood pressure 122 mm[Hg] Kelly Floro CNM Work Phone: [facility] 11-18-2024 09:47-0500 Body mass index (BMI) [Ratio] 24 kg/m2 Kelly Floro CNM Work Phone: [facility] 11-18-2024 09:47-0500 Body weight 57.61 kg Kelly Floro CNM Work Phone: [facility] 11-18-2024 09:47-0500 Diastolic blood pressure 70 mm[Hg] Kelly Floro CNM Work Phone: [facility] 11-18-2024 09:47-0500 Systolic blood pressure 110 mm[Hg] Kelly Floro CNM Work Phone: [facility] 11-05-2024 09:31-0500 Body mass index (BMI) [Ratio] 23.43 kg/m2 Kelly Floro CNM Work Phone: [facility] 11-05-2024 09:31-0500 Body weight 56.25 kg Kelly Floro CNM Work Phone: [facility] 11-05-2024 09:31-0500 Diastolic blood pressure 70 mm[Hg] Kelly Floro CNM Work Phone: [facility] 11-05-2024 09:31-0500 Systolic blood pressure 110 mm[Hg] Kelly Floro CNM Work Phone: [facility] 10-22-2024 09:59-0500 Body mass index (BMI) [Ratio] 23.43 kg/m2 Kelly Floro CNM Work Phone: [facility] 10-22-2024 09:59-0500 Body weight 56.25 kg Kelly Floro CNM Work Phone: [facility] 10-22-2024 09:59-0500 Diastolic blood pressure 70 mm[Hg] Kelly Floro CNM Work Phone: [facility] 10-22-2024 09:59-0500 Systolic blood pressure 120 mm[Hg] Kelly Floro CNM Work Phone: [facility] 10-08-2024 10:33-0500 Body mass index (BMI) [Ratio] 23.24 kg/m2 Kelly Floro CNM Work Phone: [facility] 10-08-2024 10:33-0500 Body weight 55.79 kg Kelly Floro CNM Work Phone: [facility] 10-08-2024 10:33-0500 Diastolic blood pressure 82 mm[Hg] Kelly Floro CNM Work Phone: [facility] 10-08-2024 10:33-0500 Systolic blood pressure 122 mm[Hg] Kelly Floro CNM Work Phone: [facility] 09-10-2024 09:28-0400 Body mass index (BMI) [Ratio] 23.43 kg/m2 Kelly Floro CNM Work Phone: [facility] 09-10-2024 09:28-0400 Body weight 56.25 kg Kelly Floro CNM Work Phone: [facility] 09-10-2024 09:28-0400 Diastolic blood pressure 60 mm[Hg] Kelly Floro CNM Work Phone: [facility] 09-10-2024 09:28-0400 Systolic blood pressure 110 mm[Hg] Kelly Floro CNM Work Phone: [facility] 08-12-2024 09:51-0400 Body mass index (BMI) [Ratio] 21.73 kg/m2 Kelly Floro CNM Work Phone: [facility] 08-12-2024 09:51-0400 Body weight 52.16 kg Kelly Floro CNM Work Phone: [facility] 08-12-2024 09:51-0400 Diastolic blood pressure 82 mm[Hg] Kelly Floro CNM Work Phone: [facility] 08-12-2024 09:51-0400 Systolic blood pressure 122 mm[Hg] Kelly Floro CNM Work Phone: [facility] 07-17-2024 09:36-0400 Body mass index (BMI) [Ratio] 20.97 kg/m2 Kelly Caylao CNM Work Phone: [facility] 07-17-2024 09:36-0400 Body weight 50.35 kg Kelly Kulkarnio CNM Work Phone: [facility] 07-17-2024 09:36-0400 Diastolic blood pressure 60 mm[Hg] Kelly Caylao CNM Work Phone: [facility] 07-17-2024 09:36-0400 Systolic blood pressure 108 mm[Hg] Kelly Caylao CNM Work Phone: [facility] 01-01-2024 14:08-0500 Body height 154.9 cm Kelly Kulkarnio CNM Work Phone: [facility] 01-01-2024 14:08-0500 Body mass index (BMI) [Ratio] 18.89 kg/m2 Kelly Caylao CNM Work Phone: [facility] 01-01-2024 14:08-0500 Body weight 45.36 kg Kelly Kulkarnio CNM Work Phone: [facility] 01-01-2024 14:08-0500 Diastolic blood pressure 78 mm[Hg] Kelly Caylao CNM Work Phone: [facility] 01-01-2024 14:08-0500 Systolic blood pressure 120 mm[Hg] Kelly Caylao CNM Work Phone: [facility] Healthcare Encounters Encounter Date Encounter Type Care Provider Facility Start: 12-10-2024 End: 12-10-2024 Clinis[facility] Result Encounter Kelly Pang CNM Work Phone: [facility] External Department Unsolicited Start: 12-10-2024 End: 12-10-2024 Clinisync Result Encounter Kelly Pang CNM Work Phone: [facility] External Department Unsolicited Start: 12-10-2024 ambulatory KELLY Stephanie PANG Not Charlene ilable Start: 12-10-2024 End: 12-10-2024 Office outpatient visit 15 minutes Kellyfidencio Pang CNM Work Phone: [facility] Comment on above: examinati on following delivery (Primary Dx); Elevated blood pressure reading; Hyperreflexia Start: 12-04-2024 End: 12-04-2024 [facility] Result Encounter Nika Margarita DO Work Phone: [facility] External Department Unsolicited Start: 12-04-2024 End: 12-04-2024 [facility] Result Encounter Nika Margarita DO Work Phone: [facility] External Department Unsolicited Start: 12-03-2024 End: 12-03-2024 Bamboo flowsheet Nika Margarita DO Work Phone: [facility] Start: 12-03-2024 End: 12-03-2024 Bamboo flowsheet Nika Margarita DO Work Phone: [facility] Start: 12-03-2024 End: 12-03-2024 Clinisync Result Encounter Kelly Brown Caylao CNM Work Phone: [facility] External Department Unsolicited Start: 12-03-2024 End: 12-03-2024 flow sheet Nika Margarita DO Work Phone: [facility] Comment on above: Third trimester preg kevin; 38 weeks gestation of ; Breech presentation, single or unspecified fetus Start: 12-03-2024 End: 12-03-2024 ambulatory NIKA MARGARITA Not Available Start: 12-02-2024 End: 12-02-2024 Bamboo flowsheet Kelly L Caylao CNM Work Phone: [facility] Start: 12-02-2024 End: 12-02-2024 Bamboo flowsheet Kelly L Floro CNM Work Phone: [facility] Start: 12-02-2024 End: 12-02-2024 ambulatory KELLY L FLORO Not Available Start: 11-26-2024 End: 11-26-2024 Bamboo flowsheet Kelly L Floro CNM Work Phone: [facility] Start: 11-26-2024 End: 11-26-2024 Bamboo flowsheet Kelly L Floro CNM Work Phone: [facility] Start: 11-26-2024 End: 11-26-2024 ambulatory KELLY L FLORO Not Available Start: 11-26-2024 End: 11-26-2024 Subsequent care visit Kelly L Floro CNM Work Phone: [facility] Comment on above: Encounter for superv ision of other normal , third trimester (Primary Dx); Breech presentation, single or unspecified fetus Start: 11-18-2024 End: 11-18-2024 Bamboo flowsheet Kelly L Floro CNM Work Phone: [facility] Start: 11-18-2024 End: 11-18-2024 Bamboo flowsheet Kelly L Floro CNM Work Phone: [facility] Start: 11-18-2024 End: 11-18-2024 Subsequent care visit Kelly L Floro CNM Work Phone: [facility] Comment on above: Encounter for superv ision of other normal , third trimester (Primary Dx); Breech presentation, single or unspecified fetus Start: 11-18-2024 End: 11-18-2024 ambulatory KELLY L FLORO Not Available Start: 11-05-2024 End: 11-05-2024 Bamboo flowsheet Kelly L Floro CNM Work Phone: [facility] Start: 11-05-2024 End: 11-05-2024 Bamboo flowsheet Kelly L Floro CNM Work Phone: [facility] Start: 11-05-2024 End: 11-05-2024 ambulatory KELLY L FLORO Not Available Start: 11-05-2024 End: 11-05-2024 Subsequent care visit Kelly Stephanie Kulkarnio CNM Work Phone: [facility] Comment on above: Encounter for superv ision of other normal , third trimester (Primary Dx); Breech presentation, single or unspecified fetus Start: 10-22-2024 End: 10-22-2024 Bamboo flowsheet Kelly L Floro CNM Work Phone: [facility] Start: 10-22-2024 End: 10-22-2024 Bamboo flowsheet Kelly L Floro CNM Work Phone: [facility] Start: 10-22-2024 End: 10-22-2024 Subsequent care visit Kelly Stephanie Floro CNM Work Phone: [facility] Comment on above: Encounter for superv ision of other normal , third trimester (Primary Dx); Breech presentation, single or unspecified fetus Start: 10-22-2024 End: 10-22-2024 ambulatory KELLY L FLORO Not Available Start: 10-08-2024 End: 10-08-2024 Bamboo flowsheet Kelly L Floro CNM Work Phone: [facility] Start: 10-08-2024 End: 10-08-2024 Bamboo flowsheet Kelly L Floro CNM Work Phone: [facility] Start: 10-08-2024 End: 10-08-2024 Subsequent care visit Kelly L Floro CNM Work Phone: [facility] Comment on above: Encounter for superv ision of other normal , third trimester (Primary Dx); Breech presentation, single or unspecified fetus Start: 10-08-2024 End: 10-08-2024 ambulatory KELLY L FLORO Not Available Start: 09-10-2024 End: 09-10-2024 Bamboo flowsheet Kelly L Floro CNM Work Phone: [facility] Start: 09-10-2024 End: 09-10-2024 Bamboo flowsheet Kelly L Floro CNM Work Phone: [facility] Start: 09-10-2024 End: 09-10-2024 Subsequent care visit Kelly L Floro CNM Work Phone: [facility] Comment on above: Encounter for superv ision of other normal , second trimester (Primary Dx); Screening for diabetes mellitus; Screening for iron deficiency anemia; related condition in third trimester Start: 09-10-2024 End: 09-10-2024 ambulatory KELLY L FLORO Not Available Start: 08-12-2024 End: 08-12-2024 Bamboo flowsheet Kelly L Floro CNM Work Phone: [facility] Start: 08-12-2024 End: 08-12-2024 Bamboo flowsheet Kelly L Floro CNM Work Phone: [facility] Start: 08-12-2024 End: 08-12-2024 ambulatory KELLY L FLORO Not Available Start: 08-12-2024 End: 08-12-2024 Subsequent care visit Kelly L Floro CNM Work Phone: [facility] Comment on above: Encounter for superv ision of other normal , second trimester (Primary Dx) Start: 07-24-2024 End: 07-24-2024 ambulatory KELLY L FLORO Not Available Start: 07-17-2024 End: 07-17-2024 Bamboo flowsheet Kelly L Floro CNM Work Phone: [facility] Start: 07-17-2024 End: 07-17-2024 Bamboo flowsheet Kelly L Floro CNM Work Phone: [facility] Start: 07-17-2024 End: 07-17-2024 ambulatory KELLY L FLORO Not Available Start: 07-17-2024 End: 07-17-2024 Subsequent care visit Kelly L Floro CNM Work Phone: [facility] Comment on above: Encounter for superv ision of other normal , second trimester (Primary Dx); related condition in second trimester Start: 06-19-2024 End: 06-19-2024 ambulatory KELLY PANG Not Available Start: 05-06-2024 End: 05-06-2024 ambulatory KELLY PANG Not Available Start: 01-01-2024 End: 01-01-2024 ambulatory KELLY KULKARNIO Not Available Start: 01-01-2024 Chart abstracting Kelly mcnamara CNM Work Phone: [facility] Start: 01-01-2024 End: 01-01-2024 Gynecological examination normal Kelly MORGANM Work Phone: [facility] Healthcare Start: 01-01-2024 End: 01-01-2024 Periodic preventive med est patient 18-39 yrs Kelly Pang CNM Work Phone: [facility] Comment on above: Anovulation (Primary Dx); Normal gynecologic examination; Screening for cervical cancer; Female infertility Procedures Date Procedure Procedure Detail Performing Clinician Start: 12-10-2024 ALL CBC WITH AUTO DIFF Kelly Pang CNM Work Phone: Start: 12-04-2024 ALL CBC WITH AUTO DIFF Nika Margarita DO Work Phone: Start: 12-03-2024 ALL CBC WITH AUTO DIFF Kelly Pang CNM Work Phone: Start: 12-03-2024 Urnls dip stick/tabl et rgnt non-auto w/o micrscp Nika Margarita DO Work Phone: Plan of Treatment Date Care Activity Detail Author Start: 10-24-2027 Screening for malign ant neoplasm of cervix [facility] Start: 01-06-2025 End: 01-06-2025 Patient encounter procedure 01/06/2025 9:00 AM EST Office Visit [facility] [address] [place] [address] Kelly Pang, CNM [address] [place] [address] [facility] Start: 12-09-2024 End: 12-09-2024 Patient encounter procedure 12/09/2024 10:00 AM EST Routine [facility] [address] [place] [address] Kelly Pang, CNM [address] [place] [address] [facility] Start: 12-08-2024 End: 12-08-2024 Patient encounter procedure 12/08/2024 5:00 PM EST Routine [facility] [address] [place] [address] Kelly Pang, CNM [address] [place] [address] [facility] Start: 12-03-2024 End: 12-03-2024 Patient encounter procedure [facility] Comment on above: Arrived Start: 12-02-2024 End: 12-02-2024 Patient encounter procedure 12/02/2024 9:30 AM EST Routine [facility] [address] [place] [address] Kelly Pang, CNM [address] [place] [address] [facility] Start: 11-26-2024 End: 11-26-2024 Patient encounter procedure 11/26/2024 8:30 AM EST Routine [facility] [address] [place] [address] Kelly Pang, CNM [address] [place] [address] [facility] Start: 11-18-2024 End: 11-18-2024 Patient encounter procedure [facility] Comment on above: Arrived Start: 11-05-2024 End: 11-05-2024 Patient encounter procedure 11/05/2024 9:30 AM EST Routine [facility] [address] [place] [phone] Kelly Pang, CNM [address] [place] [address] [facility] Start: 10-22-2024 End: 10-22-2024 Patient encounter procedure [facility] Comment on above: Arrived Start: 10-08-2024 End: 10-08-2024 Patient encounter procedure 10/08/2024 10:30 AM EST Routine [facility] [address] [place] [phone] Kelly Pang, CNM [address] [place] [address] [facility] Start: 10-08-2024 End: 10-08-2024 Professional / ancillary services management 10/08/2024 10:00 AM EST Ancillary Procedure [facility] [address] [phone] [facility] Start: 09-10-2024 End: 09-10-2025 CBC panel - Blood by Automated count CBC Lab Routine Screening for iron deficiency anemia Expected: 09/10/2024 (Approximate), Expires: 09/10/2025 [facility] Comment on above: Expected: 09/10/2024 (Approximate), Expires: 09/10/2025 Start: 09-10-2024 End: 09-10-2025 GLUCOSE, GESTATIONAL SCREEN (50G)-135 CUTOFF GLUCOSE, GESTATIONAL SCREEN (50G)-135 CUTOFF Lab Routine Screening for diabetes mellitus Expected: 09/10/2024 (Approximate), Expires: 09/10/2025 [facility] Work Phone: Comment on above: Expected: 09/10/2024 (Approximate), Expires: 09/10/2025 Start: 09-10-2024 End: 09-10-2025 US for US OB follow up transabdominal approach Imaging Routine related condition in third trimester Expected: 09/10/2024, Expires: 09/10/2025 [facility] Comment on above: Expected: 09/10/2024 , Expires: 09/10/2025 Start: 09-10-2024 End: 09-10-2024 Patient encounter procedure [facility] Comment on above: Arrived Start: 08-12-2024 End: 08-12-2024 Patient encounter procedure 08/12/2024 9:45 AM EDT Routine [facility] [address] [place] [phone] Kelly Pang, CNM [address] [place], [place] [id number] [facility] Start: 07-24-2024 End: 07-24-2024 Professional / ancillary services management 07/24/2024 8:15 AM EDT Ancillary Procedure [facility] [address] [phone] [facility] Start: 07-20-2024 Influenza vaccination Influenza Vacc ine (#1) [facility] Start: 07-17-2024 End: 07-17-2025 US for US OB 14+ weeks anatomy scan Imaging Routine related condition in second trimester Expected: 07/17/2024, Expires: 07/17/2025 [facility] Work Phone: Comment on above: Expected: 07/17/2024 , Expires: 07/17/2025 Start: 01-01-2024 End: 01-01-2025 Insulin, fasting Insulin, fasting Lab Routine Normal gynecologic examination Screening for cervical cancer Anovulation Female infertility Expected: 01/01/2024 (Approximate), Expires: 01/01/2025 [facility] Comment on above: Expected: 01/01/2024 (Approximate), Expires: 01/01/2025 Start: 01-01-2024 End: 01-01-2025 Lipid 1996 panel - Serum or Plasma Lipid panel Lab Routine Normal gynecologic examination Screening for cervical cancer Anovulation Female infertility Expected: 01/01/2024 (Approximate), Expires: 01/01/2025 [facility] Comment on above: Expected: 01/01/2024 (Approximate), Expires: 01/01/2025 Start: 01-01-2024 End: 01-01-2024 Patient encounter procedure 01/01/2024 2:00 PM EST Office Visit [facility] [address] [place] [address] Kelly Pang, CNM [address] [place], [place] [id number] [facility] Start: 01-01-2024 End: 01-01-2025 THINPREP IMAGING PAP AND HPV DNA REFLEX HPV 16,18 THINPREP IMAGING PAP AND HPV DNA REFLEX HPV 16,18 Pathology and Cytology Routine Screening for cervical cancer Expected: 01/01/2024 (Approximate), Expires: 01/01/2025 [facility] Work Phone: Comment on above: Expected: 01/01/2024 (Approximate), Expires: 01/01/2025 Start: 01-01-2024 End: 01-01-2025 TSH W/REFLEX TO FT4 TSH W/REFLEX TO FT4 Lab Routine Normal gynecologic examination Screening for cervical cancer Anovulation Female infertility Expected: 01/01/2024 (Approximate), Expires: 01/01/2025 [facility] Comment on above: Expected: 01/01/2024 (Approximate), Expires: 01/01/2025 Start: 07-20-2023 Influenza vaccination Influenza Vacc ine (#1) [facility] Start: 02-19-2009 Screening for malign ant neoplasm of cervix Pap Smear [facility] CBC panel - Blood by Automated count CBC Lab Routine Normal gynecologic examination Screening for cervical cancer Anovulation Female infertility Ordered: 01/01/2024 [facility] Comment on above: Ordered: 01/01/2024 Comprehensive metabo lic 2000 panel - Serum or Plasma Comprehensive metabolic panel Lab Routine Normal gynecologic examination Screening for cervical cancer Anovulation Female infertility Ordered: 01/01/2024 [facility] Comment on above: Ordered: 01/01/2024 Follicle stimulating hormone Follicle stimulating hormone Lab Routine Normal gynecologic examination Screening for cervical cancer Anovulation Female infertility Ordered: 01/01/2024 [facility] Comment on above: Ordered: 01/01/2024 LH LH Lab Routine N ormal gynecologic examination Screening for cervical cancer Anovulation Female infertility Ordered: 01/01/2024 [facility] Comment on above: Ordered: 01/01/2024 Payers Date Payer Category Payer [facility] [id number] 2022 Unknown [id number] 2022 Unknown [id number] 1988 Unknown [id number] 2..840.1.749431.3.579. 2.1258 1988 Unknown [id number] 2.16840.1.809613.3.579. 2.9 1988 Unknown [id number] 2.16.840.1.436680.3.579. 2.1258 1988 Unknown [id number] 2.16.840.1.494563.3.579. 2.9 1988 Unknown [id number] 2.16840.1.137072.3.579. 2.1258 1988 Unknown [id number] 2.16.840.1.004040.3.579. 2.9 1988 Unknown [id number] 2.16.840.1.597084.3.579. 2.1258 1988 Unknown [id number] 2.16.840.1.115554.3.579. 2.1258 1988 Unknown [id number] 2.16.840.1.763266.3.579. 2.1258 1988 Unknown [id number] 2.16.840.1.849953.3.579. 2.1258 1988 Unknown [id number] 2.16.840.1.550198.3.579. 2.1258 1988 Unknown [id number] 2.16.840.1.213085.3.579. 2.1258 1988 Unknown [id number] 2.16.840.1.619881.3.579. 2.1258 1988 Unknown [id number] 2.16.840.1.236027.3.579. 2.1258 1988 Unknown [id number] 2.16.840.1.116536.3.579. 2.1258 1988 Unknown [id number] 2.16.840.1.264139.3.579. 2.1258 1988 Unknown [id number] 2.16.840.1.433344.3.579. 2.9 Social History Date Type Detail Facility Start: 01-01-2024 Tobacco smoking stat [facility] Never smoked tobacco [facility] Start: 01-01-2024 End: 12-10-2024 Alcohol intake Lifetime non-drinker (finding) [facility] Start: 01-01-2024 Alcohol Comment caffeine: occa sional tea ; soda [facility] Start: 1990 Sex Assigned At Not on file [facility] Start: 01-01-2024 End: 05-06-2024 Gender identity Not on file [facility] Start: 01-01-2024 Tobacco use and exposure Smokeless t obacco non-user [facility] Start: 01-01-2024 End: 05-06-2024 History of Social function [facility] Start: 03-22-2024 [facility] Clinical Notes 01-01-2024 to 12-10-2024 Kelly Pang, [facility] - 12/10/2024 1:30 PM Oli Puente, T[employer]ACHINE [employer]PERATOR - 12/03/2024 11:30 AM Vincent Brown Caylajennie, CATHY - 11/26/2024 8:30 AM Vincent Pang, [facility] - 11/18/2024 9:45 AM EST Note Date & Type Note Facility 12-10-2024 History of Presen t illness Narrative Zoila Smart is here for visit. She is 1 weeks . Complaints: has no unusual complaints Weeks at delivery: 38 week Type of delivery: , Low Transverse; primary Gender: male Baby is healthy: yes Breast or bottle feeding: breast Complaints or complications: no complications mood: well Contraception: none Resumed Sexual activity: no Resumed Menses: no EXAM: GENERAL APPEARANCE: anxious, in mild to moderate distress BP in office was 180/110 and patients face is flushed, facial edema noted, bilateral eyelid swelling, lung sounds clear x4 bases, DTR's brisk at +2-+3 legs. Repeat BP 150/100 Incision: steri strips removed, hydrogen peroxide placed onto incision to clean. Incision looks great. Well healed, all edges approximated, no discharge ord rainage noted. Patient has history of elevated blood pressure after her section in the hospital and refused the blood pressure medications, and also states she did fill any prescriptions after leaving the hospital. I did discuss and educate patient and her mom is present also about post pre-eclampsia vs HELLP syndrome. Patient needs to be readmitted to the hospital and evaluation of labs, blood pressures, magnesium sulfate, blood pressure medications. Patient very tearful and concerned about what about the baby? I need to be with him as I nurse? I discussed with her we need to get her BP down and reduce the seizure threshold and make sure she is ok, and then baby can come to the hospital if appropriate. PVU and is tearful. Patients mom appears nervous as well and I offered to call the squad to transport patient to the hospital if mom wasn't comfortable driving her. She refused squad and stated I can get her to the hospital, but we aren't going home first. She will call her once she gets to the hospital. I called Dr Avila and reviewed my orders and plan of care with him. He is also in agreement for patient to go to the hospital. Repeat blood pressure before leaving my office 150/100 ASSESSMENT/PLAN: There are no diagnoses linked to this encounter. documented in this encounter [facility] 12-03-2024 History of Presen t illness Narrative Reason for Appointment: Patient ID: Zoila Smart is a 34 y.o. female who presents for Routine Visit Patient presents today for Return OB appointment. MEDICATIONS No current outpatient medications ALLERGIES No Known Allergies PROBLEMS Active Ambulatory Problems Diagnosis Date Noted No Active Ambulatory Problems Resolved Ambulatory Problems Diagnosis Date Noted No Resolved Ambulatory Problems No Additional Past Medical History HISTORY PAST MEDICAL HISTORY SOCIAL HISTORY No past medical history on file. Social History Tobacco Use Smoking status: Never Smokeless tobacco: Never Substance Use Topics Alcohol use: Never Comment: caffeine: occasional tea ; soda Drug use: Never FAMILY HISTORY Family History Problem Relation Name Age of Onset Breast cancer Mother Other (Acid reflux) Father Sleep apnea Father Hypertension Father Liver cancer Maternal Grandfather SURGICAL HISTORY Past Surgical History: Procedure Laterality Date EYE SURGERY 1994 due to being cross eyed OTHER SURGICAL HISTORY 2019 HPV was burned out WISDOM TOOTH EXTRACTION 2006 wisdom teeth REVIEW OF SYSTEMS Review of Systems: Review of Systems Constitutional: Negative. HENT: Negative. Eyes: Negative. Respiratory: Negative. Cardiovascular: Negative. Gastrointestinal: Negative. Genitourinary: Negative. Musculoskeletal: Negative. Skin: Negative. Neurological: Negative. All other systems reviewed and are negative. Hematological: Negative. Endocrine: Negative. Allergic/Immunologic: Negative. OBJECTIVE Objective: Physical Exam Constitutional: Appearance: Normal appearance. She is well-developed. Cardiovascular: Rate and Rhythm: Normal rate and regular rhythm. Pulmonary: Effort: Pulmonary effort is normal. Breath sounds: Normal breath sounds. Abdominal: General: Bowel sounds are normal. There is no distension. Palpations: Abdomen is soft. Tenderness: There is no abdominal tenderness. There is no guarding or rebound. Musculoskeletal: General: No swelling. Normal range of motion. Right lower leg: No edema. Left lower leg: No edema. Neurological: Mental Status: She is alert and oriented to person, place, and time. Skin: General: Skin is warm and dry. Psychiatric: Mood and Affect: Mood normal. Behavior: Behavior normal. Vitals and nursing note reviewed. Exam conducted with a instructional technology specialist present. Vitals: Estimated body mass index is 24.26 kg/m as calculated from the following: Height as of 01/01/24: 5' 1 . Weight as of this encounter: 128 lb 6.4 oz. BP: (!) 168/102 Patient's last menstrual period was 03/08/2024 (exact date). ASSESSMENT & PLAN ICD-10-CM 1. Third trimester Z34.93 2. 38 weeks gestation of Z3A.38 POCT urinalysis dipstick manually resulted 3. Breech presentation, single or unspecified fetus [id number] Return OB: Patient presents today for a routine obstetrics appointment. Patient is currently 38w4d . Patient states she is doing well but has complaints of being tired due to current . Patient has verbalizes frequent movement. labor precautions was discussed/given and patient was instructed to perform kick counts three times a day. Orders Placed This Encounter Procedures POCT urinalysis dipstick manually resulted Follow Up: With Evelina- scheduling delivery d/t breech presentation on 12/12/24. Documented by Ana Puente LPN on behalf of: Nika Avila DO documented in this encounter [facility] 11-26-2024 History of Presen t illness Narrative Subjective No chief complaint on file. Zoila Smart is a 34 y.o. at 37w4d with a working estimated date of delivery of 12/13/2024, by Last Menstrual Period who presents for a routine visit. She denies vaginal bleeding, leakage of fluid, decreased movements, or contractions. OB History Para Term AB Living 2 1 SAB IAB Ectopic Multiple Live Births 1 # Outcome Date GA Lbr Ochoa/2nd Weight Sex Type Anes PTL Lv 2 Current 1 SAB Her is complicated by: breech presentation Objective Physical Exam weight: 129 lb Expected Total Weight Gain: 25 lb-35 lb Pregravid BMI: 20.04 BP: 122/78 Urine protein-negative Urine glucose-negative Assessment/Plan Diagnoses and all orders for this visit: Encounter for supervision of other normal , third trimester Breech presentation, single or unspecified fetus Continue vitamin. Labs reviewed GBS positive in urine Expected mode of delivery primary section for breech Follow up in 1 week for a routine visit. Patient scheduled for primary section for complete breech presentation. Patient is discouraged and wants to wait as long as she can to see if the baby moves. She is scheduled for section on SundayDecember 09 at 0730 for primary low transverse section. She is also scheduled for meet and greet appt with Dr Avila on 12/03/24 at 11:30 am documented in this encounter [facility] 11-18-2024 History of Presen t illness Narrative Subjective No chief complaint on file. Zoila Smart is a 34 y.o. at 36w3d with a working estimated date of delivery of 12/13/2024, by Last Menstrual Period who presents for a routine visit. She denies vaginal bleeding, leakage of fluid, decreased movements, or contractions. OB History Para Term AB Living 2 1 SAB IAB Ectopic Multiple Live Births 1 # Outcome Date GA Lbr Ochoa/2nd Weight Sex Type Anes PTL Lv 2 Current 1 SAB Her is complicated by: breech presentation Objective Physical Exam weight: 127 lb Expected Total Weight Gain: 25 lb-35 lb Pregravid BMI: 20.04 BP: 110/70 Urine protein-negative Urine glucose-negative Assessment/Plan Diagnoses and all orders for this visit: Encounter for supervision of other normal , third trimester Breech presentation, single or unspecified fetus Patient is doing Czech medicine and acupuncture for breech, spinning babies and some meditation. We did discuss primary section if baby remains in breech position and usually that is done around 39 weeks. PVU and states that if she is breech at 38-39 weeks she would like to wait as close to 40 weeks as she can before doing section. She is also considering an external version attempt. I will speak with Dr Avila and give him report on patient and get his opinion. Patient wants to discuss it more with her . Patient has plan and we did fax that to [facility]. Patient does not want vitamin K and does understand the risks of not giving it. She does want to give her own vitamin K she will purchase online as it's oral. I did discuss with her the circumsion cannot be done at the hospital as that vitamin K is not FDA approved and hospital cannot be responsible for the administration of that. PVU Continue vitamin. Labs reviewed. GBS at 36 weeks Expected mode of delivery possible primary section for breech Follow up in 1 week for a routine visit. documented in this encounter [facility] 11-05-2024 History of Presen t illness Narrative Subjective No chief complaint on file. Zoila Smart is a 34 y.o. at 34w4d with a working estimated date of delivery of 12/13/2024, by Last Menstrual Period who presents for a routine visit. She denies vaginal bleeding, leakage of fluid, decreased movements, or contractions. OB History Para Term AB Living 2 1 SAB IAB Ectopic Multiple Live Births 1 # Outcome Date GA Lbr Ochoa/2nd Weight Sex Type Anes PTL Lv 2 Current 1 SAB Her is complicated by: breech, GBS + positive in urine Objective Physical Exam weight: 124 lb Expected Total Weight Gain: 25 lb-35 lb Pregravid BMI: 20.04 BP: 110/70 Urine protein-negative Urine glucose-negative Assessment/Plan Diagnoses and all orders for this visit: Encounter for supervision of other normal , third trimester Breech presentation, single or unspecified fetus To US and I assessed presentation Patient discussed about external version if needed, she will discuss with and let me know if she would like consultation with Dr Avila. Continue vitamin. Labs reviewed. GBS positive in urine Expected mode of delivery possible C/S for breech Follow up in 1 week for a routine visit. documented in this encounter [facility] 10-22-2024 History of Presen t illness Narrative Subjective No chief complaint on file. Zoila Smart is a 34 y.o. at 32w4d with a working estimated date of delivery of 12/13/2024, by Last Menstrual Period who presents for a routine visit. She denies vaginal bleeding, leakage of fluid, decreased movements, or contractions. OB History Para Term AB Living 2 1 SAB IAB Ectopic Multiple Live Births 1 # Outcome Date GA Lbr Ochoa/2nd Weight Sex Type Anes PTL Lv 2 Current 1 SAB Her is complicated by: Objective Physical Exam weight: 124 lb Expected Total Weight Gain: 25 lb-35 lb Pregravid BMI: 20.04 BP: 120/70 Urine protein-negative Urine glucose-negative Assessment/Plan Diagnoses and all orders for this visit: Encounter for supervision of other normal , third trimester Breech presentation, single or unspecified fetus Continue vitamin. Labs reviewed. GBS taken. Expected mode of delivery if baby is cephalic presentation Follow up in 1 week for a routine visit. documented in this encounter [facility] 10-08-2024 History of Presen t illness Narrative Subjective No chief complaint on file. Zoila Smart is a 34 y.o. at 30w4d with a working estimated date of delivery of 12/13/2024, by Last Menstrual Period who presents for a routine visit. She denies vaginal bleeding, leakage of fluid, decreased movements, or contractions. OB History Para Term AB Living 2 1 SAB IAB Ectopic Multiple Live Births 1 # Outcome Date GA Lbr Ochoa/2nd Weight Sex Type Anes PTL Lv 2 Current 1 SAB Her is complicated by: history of loss Objective Physical Exam weight: 123 lb Expected Total Weight Gain: 25 lb-35 lb Pregravid BMI: 20.04 BP: 122/82 Urine protein Urine glucose Assessment/Plan Diagnoses and all orders for this visit: Encounter for supervision of other normal , third trimester Breech presentation, single or unspecified fetus Lengthy discussion with patient and her regarding care provider for , circumcision, vitamin K, plan, education class. All questions answered and patient will have a plan for labor. Continue vitamin. Labs reviewed. GBS positive, present in urine Expected mode of delivery Follow up in 1 week for a routine visit. documented in this encounter [facility] 08-12-2024 History of Presen t illness Narrative Subjective No chief complaint on file. Zoila Smart is a 34 y.o. at 22w3d with a working estimated date of delivery of 12/13/2024, by Last Menstrual Period who presents for a routine visit. She denies vaginal bleeding, leakage of fluid, decreased movements, or contractions. OB History Para Term AB Living 2 1 SAB IAB Ectopic Multiple Live Births 1 # Outcome Date GA Lbr Ochoa/2nd Weight Sex Type Anes PTL Lv 2 Current 1 SAB Her is complicated by: The following portions of the chart were reviewed this encounter and updated as appropriate: Objective Physical Exam weight: 115 lb Expected Total Weight Gain: 25 lb-35 lb Pregravid BMI: 20.04 BP: 122/82 Urine protein-negative Urine glucose-negative Labs: reviewed Imaging Assessment/Plan Diagnoses and all orders for this visit: Encounter for supervision of other normal , second trimester Long discussion today with patient and her when they discussed we were thinking of a home . I probably won't do it this time because we did call a contact center team lead and she is full for the time of our due date. We did discuss in depth risks of home , event of emergency, transport to hospital, no meds available, repair, baby care, no testing such as diabetes, group B strep, PKU on baby, vitamin K. We discussed if she decides to deliver at home, I can no longer see her, she would transfer care to home contact center team lead. PVU and states she wants as natural of a as possible and I did reassure her the nurses at [facility] and myself would not force pain meds, epidural, or anything she didn't want. We would support and encourage as natural of a as we could asl long as it was safe for her and her baby. She does not want immunizations and we did discuss vitamin K. She does plan to deliver at [facility] at the end of our conversation. All questions answered. We also discussed a inspector process for labor support and coaching. Guerline her asked when do I come for labor I explained to him it depends on office, timing, etc., but I usually try and come with active labor. All questions answered. I also suggested meeting with Kiya at [facility] for some childbirth education and a tour of the dept. Continue vitamin. Labs reviewed. Rhogam GTT . Follow up in 2 weeks for a routine visit. documented in this encounter [facility] 07-17-2024 History of Presen t illness Narrative Subjective No chief complaint on file. Zoila Smart is a 34 y.o. at 18w5d with a working estimated date of delivery of 12/13/2024, by Last Menstrual Period who presents for a routine visit. She denies vaginal bleeding, leakage of fluid, decreased movements, or contractions. OB History Para Term AB Living 2 1 SAB IAB Ectopic Multiple Live Births 1 # Outcome Date GA Lbr Ochoa/2nd Weight Sex Type Anes PTL Lv 2 Current 1 SAB Her is complicated by: first loss, +GBS in urine The following portions of the chart were reviewed this encounter and updated as appropriate: Objective Physical Exam weight: 111 lb Expected Total Weight Gain: 25 lb-35 lb Pregravid BMI: 20.04 BP: 108/60 Urine protein-negative Urine glucose-negative Labs: reviewed Imaging Assessment/Plan Diagnoses and all orders for this visit: Encounter for supervision of other normal , second trimester Continue vitamin. Labs reviewed. Rhogam GTT . Follow up in 2 weeks for a routine visit. documented in this encounter [facility] 01-01-2024 History of Presen t illness Narrative YEARLY HPI: This is a established patient. Chief Complaint Patient presents with Gynecologic Exam Here for annual exam. 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 History: History reviewed. No pertinent past medical history. Past Surgical History: Procedure Laterality Date EYE SURGERY 1994 due to being cross eyed OTHER SURGICAL HISTORY 2018 HPV was burned out WISDOM TOOTH EXTRACTION 2006 wisdom teeth Family History Problem Relation Name Age of Onset Breast cancer Mother Other (Acid reflux) Father Sleep apnea Father Hypertension Father Liver cancer Maternal Grandfather @[facility]@ Allergies: No Known Allergies Medications: No current outpatient medications on file prior to visit. No current facility-administered medications on file prior to visit. ROS: Review of Systems All other systems reviewed and are negative. Vitals: 01/01/24 1408 BP: 120/78 Physical exam: Physical Exam Vitals reviewed. Constitutional: Appearance: Normal appearance. HENT: Head: Normocephalic. Right Ear: Tympanic membrane normal. Left Ear: Tympanic membrane normal. Mouth/Throat: Mouth: Mucous membranes are moist. Eyes: Pupils: Pupils are equal, round, and reactive to light. Cardiovascular: Rate and Rhythm: Normal rate and regular rhythm. Pulses: Normal pulses. Heart sounds: Normal heart sounds. Pulmonary: Effort: Pulmonary effort is normal. Breath sounds: Normal breath sounds. Chest: Breasts: Right: Normal. Left: Normal. Abdominal: General: Abdomen is flat. Bowel sounds are normal. Palpations: Abdomen is soft. Tenderness: There is no abdominal tenderness. Genitourinary: General: Normal vulva. Exam position: Lithotomy position. Vagina: Normal. Cervix: Normal. Uterus: Normal. Adnexa: Right adnexa normal and left adnexa normal. Musculoskeletal: General: Normal range of motion. Cervical back: Normal range of motion and neck supple. Skin: General: Skin is warm and dry. Neurological: General: No focal deficit present. Mental Status: She is alert and oriented to person, place, and time. Psychiatric: Mood and Affect: Mood normal. Assessment and Plan: 1. Annual exam 2. SBE discussed: Yes 3. Diet and exercise discussed: Yes 4. Wt control discussed: No 5. Safe sex discussed: No Zoila was seen today for gynecologic exam. Diagnoses and all orders for this visit: Normal gynecologic examination Patient states she has a lot of stress in her jobs. 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 She also states they have been trying to get for a year with no results. She states it's hard because she had a blighted ovum x1 year ago and cannot get since then. She is tracking her periods and states they are 28 days apart. We did discuss reducing stress, exercise, dating her , occasional glass of wine is ok, Clear blue ovulation predictor kits to check if she is ovulating, cough syrup for her , timed intercourse on days 12,14, 16, 18 of her cycle if she is having a 28 day cycle. Patient does not want to be placed on Metformin at this time and we will order labs. We did discuss metformin, clomid and femara if needed in the future. All questions answered. She will monitor her cycles for 2-3 months and predictor kit and let me know. No follow-ups on file. There are no Patient Instructions on file for this visit. Connie Garcia MA, 01/01/2024 2:15 PM documented in this encounter [facility] Healthcare Evaluation note Diagnosis Anovulation- Primary Female infertility associated with anovulation Normal gynecologic examination Screening for cervical cancer Screening for malignant neoplasm of the cervix Female infertility Female infertility of unspecified origin documented [facility] Diagnosis Encounter for supervision of other normal , second trimester- Primary Screening for diabetes mellitus Screening for iron deficiency anemia related condition in third trimester documented in this [facility] Diagnosis Encounter for supervision of other normal , third trimester- Primary Breech presentation, single or unspecified fetus documented in this [facility] Diagnosis Encounter for supervision of other normal , third trimester- Primary Breech presentation, single or unspecified fetus documented [facility] Diagnosis Encounter for supervision of other normal , second trimester- Primary related condition in second trimester documented in this [facility]* Diagnosis Encounter for supervision of other normal , second trimester- Primary documented in this [facility]* Diagnosis Encounter for supervision of other normal , third trimester- Primary Breech presentation, single or unspecified fetus documented [facility]* Diagnosis Third trimester state, incidental 38 weeks gestation of Breech presentation, single or unspecified fetus documented [facility]* Diagnosis examination following delivery- Primary Elevated blood pressure reading Elevated blood pressure reading without diagnosis of hypertension Hyperreflexia Abnormal reflex documented in this encounter [facility] Summary Purpose Family History No Family History Records Found Advance Directives No Advanced Directives Records Found Additional Source Comments Care Teams (unrecognized sec tion and content) Drafter (Cad) Electronic Relationship Specialty Start Date End Date Connie Hernandez MD [address] [facility] [place] [address] PCP - General Family Medicine 03/27/23 Drafter (Cad) Electronic Relationship Specialty Start Date End Date Connie Hernandez MD [address] [facility] [place] [address] PCP - General Family Medicine 03/27/23 Drafter (Cad) Electronic Relationship Specialty Start Date End Date Connie Hernandez MD [address] [facility] [place] [address] PCP - General Family Medicine 03/27/23 Drafter (Cad) Electronic Relationship Specialty Start Date End Date Connie Hernandez MD [address] [facility] [place] [address] PCP - General Family Medicine 03/27/23 Drafter (Cad) Electronic Relationship Specialty Start Date End Date Connie Hernandez MD [address] [facility] [place] [address] PCP - General Family Medicine 03/27/23 Drafter (Cad) Electronic Relationship Specialty Start Date End Date Connie Hernandez MD [address] [place] [address] PCP - General Family Medicine 03/27/23 Drafter (Cad) Electronic Relationship Specialty Start Date End Date Connie Hernandez MD [address] [place] [address] PCP - General Family Medicine 03/27/23 Drafter (Cad) Electronic Relationship Specialty Start Date End Date Connie Hernandez MD [address] [place] [address] PCP - General Family Medicine 03/27/23 Drafter (Cad) Electronic Relationship Specialty Start Date End Date Connie Hernandez MD [address] [place] [address] PCP - General Family Medicine 03/27/23 Drafter (Cad) Electronic Relationship Specialty Start Date End Date Connie Hernandez MD [address] [place] [address] PCP - General Family Medicine 03/27/23 Reason for Visit (unrecogniz ed section and content) Reason Comments Gynecologic Exam Reason Comments Routine Visit Reason Comments Care INFORMATION SOURCE (unrecogn ized section and content) DATE CREATED AUTHOR 12/12/2024 [facility] FOR RECORDS PERTAINING TO PATIENTS WHO ARE OR HAVE BEEN ENROLLED IN A CHEMICAL DEPENDENCY/SUBSTANCEABUSE PROGRAM, SOME INFORMATION MAY BE OMITTED. This clinical summary was aggregated from multiple sources. Caution should be exercised in using it in the provision of clinical care. This summary normalizes information from multiple sources, and as a consequence, information in this document may materially change the coding, format and clinical context of patient data. In addition, data may be omitted in some cases. CLINICAL DECISIONS SHOULD BE BASED ON THE PRIMARY CLINICAL RECORDS. [facility] [employer] [facility] provides no warranty or guarantee of the accuracy or completeness of information in this document.
[2024-12-15 12:52] VITALS: BP 134/84; PULSE 66; TEMP 36.8; O2SAT 96
--- NOTE | 2024-12-15 12:52 | PC.NURSE ---
Nando Cummings and 12 day old Crew arrive for follow up appointment. Zoila emery is tired but doing well. States has been taking prescribed blood pressure medication as instructed. Encouraged to continue taking meds as prescribed and not reduce dose or interval unless directed by PCP. VSS and assessment WNL. Incision healing well, no redness or drainage noted. States going well, latching is difficult at times but not sure why. Baby Crew with VSS and assessment WNL. LC notes minimal lip and tongue tie for . Discussed consultation with pediatric dentist for further evaluation. Parents will discuss and decide. Referral info given. Weight up from discharge. Parents tracking feeds and diapers on annel on phone. Encouraged to feed from both breasts per feed instead on 1 breast every hour. Voices understanding. Parents become anxious when Crew cries during the exam. Parents offering pacifier, questioning if baby is okay . Discussed expectations and changes in behavior, crying during diaper changes and for exam as expected and was ok to cry as he is voicing his opinion parents thought he would hurt himself crying. Reassurance given. Baby quiets quickly once diapered. Baby to breast, mom uses single arm to latch, grimaces at discomfort. Shallow latch with lips puckered around nipple. LC assists and demo's positioning and latch for more comfort and deeper latch. Mom surprised at difference in latch and comfort. Baby nurses 15 minutes well, off breast and independently to 2nd breast. Mom able to return demo well. Baby nurses 10 minutes and released latch. Father burps and changes diaper for infant. Both parents competent with handling baby. No further questions at this time. Home with baby. Aware of MOMS group and to call for concerns.
== END 2024-12-15 12:58 | disposition home or self-care (01) ==
PROVIDERS: Visit Provider Midwife
DX: Z39.1 Encounter for care and examination of lactating mother (principal)